=== PATIENT | male | born 1945 | race Caucasian/White ===

== ENCOUNTER 2021-08-24 13:17 | Emergency (ER) | payer OTHER ==
[~2021-08-24] VITALS: Ht 172.7 cm; Wt 65.8 kg
[2021-08-24 13:45] VITALS: BP_SYST 132
--- NOTE | 2021-08-24 13:45 | NUR ---
Patient to ER bed 7 to gown for evaluation. Side rails up. Report given to CYNTHIA MCGINNIS.
[2021-08-24] MEDS ORDERED: FINA5TAB3 PO (14:16)
[2021-08-24] MEDS ORDERED: DONE5TAB33 PO (14:16)
[2021-08-24] MEDS ORDERED: LIP20 PO (14:16)
[2021-08-24] MEDS ORDERED: ALPR0.5T8 PO (14:16)
[2021-08-24] MEDS ORDERED: METO25TA6 PO (14:16)
[2021-08-24] MEDS ORDERED: QUET25TA36 PO (14:16)
[2021-08-24] MEDS ORDERED: ESCI20TA PO (14:16)
[2021-08-24] MEDS ORDERED: MEMA10TA PO (14:16)
--- NOTE | 2021-08-24 14:19 | NUR ---
Medication reconciliation completed with information provided by PATIENT. Any prior medication reconciliation on file was reviewed and corrected.
--- NOTE | 2021-08-24 14:24 | NUR ---
ER at bedside examining patient.
--- NOTE | 2021-08-24 14:26 | NUR ---
MRSA and covid swab sent to the lab
[2021-08-24 14:40] LABS: BILIRUBIN,URINE 1+ (NEGATIVE); BLOOD, URINE NEGATIVE (NEGATIVE); CLARITY/URINE CLEAR (CLEAR); COLOR,URINE YELLOW (YELLOW); GLUCOSE,URINE NEGATIVE (NEGATIVE); KETONES,URINE 1+ (NEGATIVE); LEUKOCYTE ESTERASE ,URINE NEGATIVE (NEGATIVE); NITRITE, URINE NEGATIVE (NEGATIVE); PH,URINE 6.5 (5.0-8.0); PROTEIN URINE 1+ (NEGATIVE)
--- NOTE | 2021-08-24 14:40 | NUR ---
Pt arrives from home with son alert oriented history of early signs of dementia. VSS skin intact, pt c/o failure to thrive. pt states poor appetite, non compliant with medication. Pt states lost 75 lbs in past year. current weight 145. DR Briceno sent the patient for further evaluation and possible admission. pt denies pain no n/v or distress. PMH A fibb high cholesterol dementia recurrent UTI
--- NOTE | 2021-08-24 14:55 | NUR ---
# 20 gauge angiocath placed to left ac. Use of asceptic technique. Opsite placed over site. Blood return noted. Blood for lab drawn from site. Flushed with 10 cc of normal saline. No evidence of infiltration noted. Patient tolerated well.
[2021-08-24 14:59] LABS: BARBITURATE, URINE NEGATIVE (NEG <=200); BENZODIAZEPINE, URINE POSITIVE (NEG <=150); CANNABINOID, URINE NEGATIVE (NEG <=50); COCAINE, URINE NEGATIVE (NEG <=150); METHAMPHETAMINES SCREEN,URINE NEGATIVE (NEG <=500); OPIATE, URINE NEGATIVE (NEG <=100); PHENCYCLIDINE SCREEN,URINE NEGATIVE (NEG <=25); UR TRICYCLIC ANTIDEPRESSANTS NEGATIVE (NEG <=300); URINE AMPHETAMINE NEGATIVE (NEG <=500); URINE METHADONE NEGATIVE (NEG <=200); URINE OXYCODONE SCREEN NEGATIVE (NEG <=100); URINE PROPOXYPHENE SCREEN NEGATIVE (NEG <=300)
[2021-08-24 15:08] LABS: BACTERIA,URINE FEW /HPF (None Seen); HYALINE CASTS, URINE 0-10 /LPF (None Seen); RBC,URINE 0-3 /HPF (0-3); WBC,URINE 0-3 /HPF (0-3)
[2021-08-24 15:14] LABS: RED CELL DISTRIBUTION WIDTH 12.6 % (9.0-15.0)
[2021-08-24 15:29] LABS: BASOPHILS % (AUTO) 0.2 % (0.0-2.0); EOSINOPHILS % (AUTO) 0.1 % (0.0-4.0); HEMATOCRIT 46.6 % (36-54); HEMOGLOBIN 15.8 g/dL (14.0-18.0); LYMPHOCYTES # (AUTO) 0.8 K/uL (1.0-5.5); LYMPHOCYTES % (AUTO) 9.5 % (20.5-51.5); MEAN CORPUSCULAR HEMOGLOBIN 31 pg (27-31); MEAN CORPUSCULAR HGB CONC 34 % (32-36); MEAN CORPUSCULAR VOLUME 91 fL (79.0-98.0); MONOCYTES # (AUTO) 0.4 K/uL (0.0-1.0); MONOCYTES % (AUTO) 5.1 % (1.7-9.3); NEUTROPHILS # (AUTO) 6.9 K/uL (1.8-7.7); NEUTROPHILS % (AUTO) 85.1 % (40.0-70.0); PLATELET COUNT (AUTO) 222 K/uL (130-430); RED BLOOD CELL COUNT(AUTO) 5.12 MIL/uL (4.2-6.2); WHITE BLOOD COUNT (AUTO) 8.1 K/uL (4.8-10.8)
[2021-08-24 15:31] LABS: ANION GAP 8 (5-15); CALCIUM 10.2 mg/dL (8.4-11.0); CHLORIDE 104 mmol/L (98-107); CREATININE 1.06 mg/dL (0.55-1.30); GLUCOSE 111 mg/dL (70-99); POTASSIUM 4.4 mmol/L (3.5-5.1); SODIUM SERUM 141 mmol/L (136-145); UREA NITROGEN, BLOOD 17 mg/dL (8-21)
[2021-08-24 15:36] LABS: INR 1.1 (0.80-1.20); PROTHROMBIN TIME 11.7 SECS (9.5-12.5)
[2021-08-24 15:46] LABS: ALANINE AMINOTRANSFERASE 55 U/L (12-78); ALBUMIN 4.4 g/dL (3.4-4.8); ASPARTATE AMINOTRANSFERASE 34 U/L (10-37); FREE T4 (FREE THYROXINE) 1.1 ng/dl (0.8-1.5); THYROID STIMULATING HORMONE 3.08 uIu/mL (0.36-3.74); TOTAL BILIRUBIN 0.7 mg/dL (0.0-1.0)
[2021-08-24 16:02] LABS: CHOLESTEROL 142 mg/dL (<200); HDL CHOLESTEROL 73 mg/dL (>45); TRIGLYCERIDES 79 mg/dL (30-150)
[2021-08-24 16:03] LABS: LDL CHOLESTEROL 51 mg/dL (<100)
--- NOTE | 2021-08-24 17:50 | NUR ---
Paperwork faxed to [employer]. Waiting for call back.
--- NOTE | 2021-08-24 18:25 | NUR ---
Called [facility] to see if pt will be getting accepted and they stated there are currently no beds availabe. Charge nurse Sia notified.
--- NOTE | 2021-08-24 18:28 | NUR ---
Dr. Quintero made aware that [facility] has no available beds.
--- NOTE | 2021-08-24 20:25 | NUR ---
Spoke to Hue from [facility] regarding transfer. Per Hue, pt needs a 5150 in order to be transferred there and stated PET team will have to eval pt first. Dr. Briceno was made aware. Addendum: 08/24/21 at 2047 by [email or web address] CYNTHIA Saeed
[2021-08-24] MEDS ORDERED: LORazepam 1 MG TABLET PO ONE (21:15)
--- NOTE | 2021-08-24 23:17 | NUR ---
Spoke to Delicia @ [facility] and confirmed pt will be admitted @ facility and [facility] will be accepting Dr. Pt will be going to room 141B. Report given to Delicia. Original [id number] included in discharge package.
--- NOTE | 2021-08-25 00:01 | NUR ---
Patient to be transferred to [facility]. Is being transferred due to higher level of care/Psych hold. Receiving facility has accepting physician and available space. ER physician has signed transfer form. Patient or responsible alliance party has agreed to transfer and signed form. Copy of nursing notes, lab reports, EKG, Physicians Orders and X-rays to be sent with patient. Report called to CYNTHIA Nesbitt at receiving facility. Receiving physician is Dr. Alejandre. [facility] has been called for transfer. ETA is 0030.
--- NOTE | 2021-08-25 00:40 | NUR ---
[facility] ambulance arrived for transport to [facility]. Notified CYNTHIA Nesbitt @ [facility] of pt en route. Family member at bedside.
[2021-08-25 00:47] VITALS: BP_SYST 120
== END 2021-08-25 00:40 ==
LOC: SED 13:17
DX: F29 Unspecified psychosis not due to a substance or known physiological condition (principal); F22 Delusional disorders; G20 Parkinson's disease; I48.20 Chronic atrial fibrillation, unspecified; E78.00 Pure hypercholesterolemia, unspecified; Z79.899 Other long term (current) drug therapy; Z20.822 Contact with and (suspected) exposure to COVID-19
CPT/HCPCS: 36415; 71045; 80053; 80061; 80307; 81000; 83036; 84439; 84443; 85025; 85610-TC; 87081; 93005; 99285